=== PATIENT | female | born 1985 | race Caucasian/White ===

== ENCOUNTER → 2018-01-15 | Outpatient (CLI) | payer BC ==
[~2018-01-15] MED LIST: BCP TD; CLARITIN 1010 MG/TAB PO; IRON325 M2 PO; METHERGINE0.2 MG/TAB PO; MOTRIN 600600 MG/TAB PO; MOTRIN 800800 MG/TAB PO; NORCO 325 MG-7.1 TAB PO; PERCOCET 325 MG1 TA2 PO; PRENATAL1 TA4
== END ==
LOC: COL.VAS 10:16
DX: M79.89 Other specified soft tissue disorders (principal); M79.661 Pain in right lower leg; Z98.890 Other specified postprocedural states

== ENCOUNTER → 2018-11-12 | Outpatient (CLI) | payer BC | LOC: MC.RAD 07:24 | DX: N64.59 Other signs and symptoms in breast (principal); N63.20 Unspecified lump in the left breast, unspecified quadrant | CPT/HCPCS: G0279 ==

== ENCOUNTER → 2019-05-16 | Outpatient (CLI) | payer BC | LOC: MC.RAD 07:29 | DX: N63.20 Unspecified lump in the left breast, unspecified quadrant (principal); R92.8 Other abnormal and inconclusive findings on diagnostic imaging of breast | CPT/HCPCS: G0279 ==

== ENCOUNTER → 2022-01-01 | Outpatient (CLI) | payer BC | LOC: COL.VAS 11:17 | DX: R20.2 Paresthesia of skin (principal) ==

== ENCOUNTER → 2024-04-12 | Outpatient (CLI) | payer BC | LOC: MC.RAD 07:29 | DX: Z12.31 Encounter for screening mammogram for malignant neoplasm of breast (principal) ==